=== PATIENT | male | born 1970 | race Caucasian/White ===

== ENCOUNTER 2025-03-17 11:06 | Emergency (ER) | payer OTHER, SELFPAY ==
[2025-03-17 11:15] VITALS: BP 185/116; PULSE 84; RESP 20; TEMP 36.8; O2SAT 96; BMI 33.8
--- NOTE | 2025-03-17 11:26 | CRLHL7_ITS ---
For Patients: As a result of the Cures Act, medical imaging exams and procedure reports are released immediately into your electronic medical record. You may view this report before your referring provider. If you have questions, please contact your health care provider. INDICATIONS: Left posterior rib pain. TECHNIQUE: CT chest without contrast. COMPARISON: Chest and left ribs 03/17/2025. FINDINGS: No pleural or pericardial effusions. Calcified nodes consistent with prior granulomatous disease. No pathologic lymphadenopathy. Aortic atherosclerosis. Ascending thoracic aorta is dilated to 4 cm. Main pulmonary artery is normal in caliber. Coronary artery calcifications. Heart size is within normal limits. Soft tissues of the thoracic wall are unremarkable. No pneumothorax. Central airways are patent. Bilateral incidental calcified granulomata. Mild basilar scarring or atelectasis. Lungs are otherwise clear. Visualized unenhanced upper abdomen is unremarkable. Bone windows demonstrate an acute minimally displaced fracture of the left posterior 9th rib. No additional evidence of fracture. The 10th rib fracture discussed on radiography is not evident by CT. Degenerative changes of the spine. IMPRESSION: 1. No evidence of acute cardiopulmonary disease. 2. Dilatation of the ascending thoracic aorta to 4 cm. 3. Acute minimally displaced fracture of the left posterior 9th rib. Dictated by Alvaro Ramon MD @ 03/17/2025 12:03:17 PM Please note that all CT scans at this facility use dose modulation, iterative reconstruction, and/or weight-based dosing when appropriate to reduce radiation dose to as low as reasonably achievable. Dictated by: Alvaro Ramon MD @ 03/17/2025 12:04:14 (Electronically Signed)
--- NOTE | 2025-03-17 11:27 | ED_ITS ---
HPI - General Adult General Chief complaint: Chest Pain Stated complaint: possible ct scan- sent from clinic Time Seen by Provider: 03/17/25 11:22 History of Present Illness HPI narrative: This 54-year-old male comes in with rib fractures. He was fishing yesterday and the chair he was sitting on in the boat collapsed. He fell backwards and hit his left posterior ribs. He also hit his head but did not have loss of consciousness. He continued to fish with more minimal discomfort. Since then he is had much more pain and did present to urgent care prior to arrival here. X-ray images there showed 3 or possibly for rib fractures. Patient does not report any shortness of breath. Related Data Previous Rx's ?Medication ?Instructions ?Recorded hydrocodone 5 mg-acetaminophen 325 1 tab PO Q4-6H PRN pain #20 tabs 03/17/25 mg tablet ketorolac 10 mg tablet 10 mg PO TID 5 days #15 tabs 03/17/25 Allergies Allergy/AdvReac Type Severity Reaction Status Date / Time No Known Drug Allergies Allergy Verified 03/17/25 08:50 Review of Systems Status of ROS: Reports: 10 or more systems reviewed and unremarkable except as noted in History and below Narrative: Constitutional: No fevers, no weight gain or loss. Eyes: No discharge. No vision changes. HENT: No congestion, no sore throat, no ear pain. Cardiovascular: No palpitations. Chest wall: Left posterior rib fractures with tenderness. Respiratory: No shortness of breath, no wheezes, no cough. Gastrointestinal: No abdominal pain, no vomiting, no diarrhea. Genitourinary: No dysuria, no hematuria. Musculoskeletal: Normal range of motion. Skin: No rashes, no pruritis. Neurological: No dizziness, weakness, sensory change, speech change. Endo/Heme/Allergies: No bruising or bleeding. No polydipsia. Pysch: no suicidality, no anxiety, no insomnia. All other systems reviewed and are negative. PFSH PFSH Social History Smoking Status: Never smoker How often do you have a drink containing alcohol: 2-4 times a month AUDIT-C Alcohol total score: 2 Non-prescribed substance use: denies use Exam Narrative: Exam Narrative: Constitutional: Well-developed, well-nourished, no acute distress. HEENT: Normocephalic, atraumatic. Neck: Normal range of motion. Nontender. Supple. Heart: Regular. No murmurs. Normal rate. Intact distal pulses. Lungs: Clear to auscultation. Left posterior rib pain. No sign of bruising or skin injury. No wheezes, rhonchi, or rales. Abdomen: Normal bowel sounds. Nontender. No rebound tenderness. Genitalia: Deferred. Back: No midline tenderness. Normal range of motion. Extremities: Normal range of motion. No injury. Skin: Intact. No rash. Warm. No erythema or pallor. Neurologic: No altered sensation. No weakness. Alert and oriented. Psychiatric: No suicidality. No anxiety or depression. No insomnia. Nursing notes and vitals signs are reviewed. Const: Vital Signs, click to edit/add: Vital Signs - 24 hr 03/17/25 11:15 Temperature 98.2 F Pulse Rate [Pulse Oximeter] 84 Respiratory Rate 20 Blood Pressure [Ri ght Upper Arm] 185/116 H Pulse Oximetry 96 Oxygen Delivery Me thod Room Air Course Vital Signs Vital signs: Initial Vital Signs Temperature 98.2 F 03/17/25 11:15 Temperature Source Temporal Artery Scan 03/17/25 11:15 Pulse Rate 84 03/17/25 11:15 Respiratory Rate 20 03/17/25 11:15 Blood Pressure 185/116 H 03/17/25 11:15 Blood Pressure Mean 139 H 03/17/25 11:15 Blood Pressure Position Sitting 03/17/25 11:15 Pulse Oximetry 96 03/17/25 11:15 Oxygen Delivery Method Room Air 03/17/25 11:15 Vital Signs Temperature 98.2 F 03/17/25 11:15 Pulse Rate 84 03/17/25 11:15 Respiratory Rate 20 03/17/25 11:15 Blood Pressure 185/116 H 03/17/25 11:15 Pulse Oximetry 96 03/17/25 11:15 Oxygen Delivery Method Room Air 03/17/25 11:15 Temperature 98.2 F 03/17/25 11:15 Pulse Rate 84 03/17/25 11:15 Respiratory Rate 20 03/17/25 11:15 Blood Pressure 185/116 H 03/17/25 11:15 Pulse Oximetry 96 03/17/25 11:15 Oxygen Delivery Method Room Air 03/17/25 11:15 Medical Decision Making MDM Narrative Medical decision making narrative: This patient comes in with a rib injury as described above. CT scan of the chest is obtained and shows evidence of a fracture of the 9th rib on the left posterior aspect. His lungs appear normal. There are no findings suggesting multiple rib fractures. The patient is okay to be discharged home. I did provide prescriptions for Toradol and [place] and also provided a return to work note. Imaging Data CT scan - chest: Radiologist's impression: 1. No evidence of acute cardiopulmonary disease. 2. Dilatation of the ascending thoracic aorta to 4 cm. 3. Acute minimally displaced fracture of the left posterior 9th rib. Discharge Plan Discharge Clinical Impression: Fracture of rib Patient Disposition: Home, Self-Care Condition: Stable Additional Instructions: Take medication as needed and indicated. Increase activity as tolerated. Consider a rib belt for additional support and comfort. Follow up with MD or return if worsening. Prescriptions: New hydrocodone-acetaminophen 5-325 mg tablet 1 tab PO Q4-6H PRN (Reason: pain) Qty: 20 0RF ketorolac 10 mg tablet 10 mg PO TID 5 Days Qty: 15 0RF Follow Up/Referrals: Hernandez Courtney MD [Primary Care Provider, Family Practice] Stand Alone Forms: [employer] Info Instructions
== END 2025-03-17 12:37 | disposition home or self-care (01) ==
PROVIDERS: Emergency Provider Emergency Medicine Emergency Medical Services; PCP Family Medicine
DX: S22.32XA Fracture of one rib, left side, initial encounter for closed fracture (principal); W07.XXXA Fall from chair, initial encounter
CPT/HCPCS: 71250; 99283; 99284